=== PATIENT | male | born 1965 | race Caucasian/White ===

== ENCOUNTER 2019-06-24 14:35 | Inpatient (IN) | payer OTHER ==
[2019-06-24 15:09] LABS: ABS Basophils 0.2 10^3/ul (0-0.2); ABS Eosinophils 0.2 10^3/ul (0-0.6); ABS Lymphocytes 2.5 10^3/ul (1.0-4.8); ABS Monocytes 1.5 10^3/ul (0-0.8); ABS Neutrophils 12.9 10^3/ul (1.5-7.7); Eosinophil % 1.2 %; Hematocrit 45 % (42-52); Hemoglobin 15.6 g/dL (14.0-18.0); Lymphocyte % 14.6 %; Mean Corpuscular HGB Conc 35 g/dL (31-36); Mean Corpuscular Hemoglobin 31 pg (27-31); Mean Corpuscular Volume 90 fL (80-94); Mean Platelet Volume 6.7 fL (7.4-10.4); Platelet Count 318 10^3/uL (150-450); Red Blood Count 5.01 10^6 /uL (4.18-5.48); Red Cell Distribution Width 14 % (10-15); White Blood Count 17.2 10^3/uL (3.5-10.8)
[2019-06-24 15:15] LABS: INR 1.05 (0.82-1.09)
[2019-06-24 15:32] LABS: Troponin I 0.01 ng/mL (<0.03)
[2019-06-24 16:13] LABS: Albumin 3.9 g/dL (3.2-5.2); Calcium 9.3 mg/dL (8.6-10.3); Potassium 3.7 mmol/L (3.5-5.0); Total Bilirubin 0.5 mg/dL (0.2-1.0)
[2019-06-24 16:19] LABS: Albumin/Globulin Ratio 1.2 (1-3); BUN/Creatinine Ratio 14.2 (8-20); EGFR African American 66.7 (>60); EGFR Non-African American 55.1 (>60); Globulin 3.3 g/dL (2-4); Total Protein 7.2 g/dL (6.4-8.9)
[2019-06-24] MEDS ORDERED: NS 0.9% 1000 ML** 1,000 ML IV ONE (16:48)
[2019-06-24] MEDS ORDERED: Al Hydrox/Mg Hydrox/Simet LIQ* 30 ML UDC PO ONE (16:51)
[2019-06-24] MEDS ORDERED: Lidocaine 2% VISCOUS* 15 ML UDC PO ONE (16:51)
--- NOTE | 2019-06-24 16:52 | ED ---
HPI Chest Pain - HPI Summary HPI Summary: 54 year old M presenting to [facility] with a chief complaint of left sided chest pain that radiates to his navel and groin starting yesterday 06/24/2019 PM. The patient also reports bilateral arm weakness, nausea, lightheadedness, decreased appetite. He denies his pain radiating to his back. He reports that his symptoms have improved since initial onset. He states he took some aspirin today and took a nap after which his symptoms improved. The patient rates the pain 9/10 in severity. Symptoms aggravated by nothing. Symptoms alleviated by aspirin and rest. Patient denies any diaphoresis, abdominal pain, bloody stools , dysuria, hematuria, lower back pain, cough, bilateral calf pain, pain or numbness in bilateral arms, or shortness of breath. Patient denies any cardiac history. No hx [place], cardiac stents placed, or diabetes. The patient reports a history of hypertension. Current smoker. He states he has been smoking for 35 years. He denies eating today or having a bowel movement today. - History of Current Complaint Chief Complaint: EDChestPainROMI Time Seen by Provider: 06/24/19 16:38 Hx Obtained From: Patient Onset/Duration: Started Hours Ago, Still Present Timing: Constant Current Severity: Severe Pain Intensity: 9 Pain Scale Used: 0-10 Numeric Chest Pain Location: Discrete at: - left sided Chest Pain Radiates: Yes Chest Pain Radiates To:: Other - Navel and groin Aggravating Factor(s): Nothing Alleviating Factor(s): Other: - aspirin and rest Associated Signs and Symptoms: Positive: Negative - diaphoresis, abdominal pain , bloody stools, dysuria, hematuria, lower back pain, cough, bilateral calf pain , pain or numbness in bilateral arms, or shortness of breath, Weakness - Bilateral arm weakness, Lightheadedness, Nausea, Other: - decreased appetite - Allergy/Home Medications Allergies/Adverse Reactions: Allergies Allergy/AdvReac Type Severity Reaction Status Date / Time No Known Allergies Allergy Verified 06/24/19 14:53 Home Medications: Home Medications Amlodipine Besylate/Benazepril [Lotrel 10-40 mg] 1 cap PO DAILY 06/24/19 [ History Confirmed 06/24/19] Bupropion XL* [Wellbutrin XL *] 300 mg PO DAILY 06/24/19 [History Confirmed ] Omeprazole (Nf) [Prilosec (NF)] 40 mg PO DAILY 06/24/19 [History Confirmed 06/24] tadalafiL [Tadalafil] 10 mg PO DAILY PRN 06/24/19 [History Confirmed 06/24/19] PMH/Surg Hx/FS Hx/Imm Hx Endocrine/Hematology History: Denies: Hx Diabetes Cardiovascular History: Reports: Hx Hypertension Denies: Hx Deep Vein Thrombosis, Hx Myocardial Infarction - Surgical History Surgery Procedure, Year, and Place: varicose veins surgery in [place] Infectious Disease History: No Infectious Disease History: Denies: Traveled Outside the [place] in Last 30 Days - Family History Known Family History: Positive: Hypertension - Social History Alcohol Use: None Substance Use Type: Reports: None Hx Tobacco Use: Yes Smoking Status (MU): Former Smoker Review of Systems Negative: Skin Diaphoresis Positive: Chest Pain Negative: Shortness Of Breath, Cough Gastrointestinal: Negative - bloody stools Positive: Nausea, Other - decreased appetite. Negative: Abdominal Pain Genitourinary: Other - Testicular pain Negative: dysuria, hematuria Musculoskeletal: Negative - Lower back pain; bilateral calf pain; pain in bilateral arms Positive: Other - Diaphoresis Neurological/Mental Status: Other - light headedness Positive: Weakness - Bilateral arm. Negative: Numbness - bilateral arms All Other Systems Reviewed And Are Negative: Yes Physical Exam - Summary Physical Exam Summary: Constitutional: Well-developed, Well-nourished, Alert. (-) Distressed Skin: Warm, Dry HENT: Normocephalic; Atraumatic Eyes: Conjunctiva normal Neck: Musculoskeletal ROM normal neck. (-) JVD, (-) Stridor, (-) Tracheal deviation Cardio: Rhythm regular, rate normal, Heart sounds normal; Intact distal pulses; The pedal pulses are 2+ and symmetric. Radial pulses are 2+ and symmetric. (-) Murmur Pulmonary/Chest wall: Effort normal. (-) Respiratory distress, (-) Wheezes, (-) Rales Abd: Soft, mild mid-abdominal tenderness, (-) Distension, (-) Guarding, (-) Rebound Musculoskeletal: (-) Edema Lymph: (-) Cervical adenopathy Neuro: Alert, Oriented x3 Psych: Mood and affect Normal Triage Information Reviewed: Yes Vital Signs On Initial Exam: Initial Vitals Temp Pulse Resp BP Pulse Ox 98.2 F 70 18 159/95 98 06/24/19 14:44 06/24/19 14:44 06/24/19 14:44 06/24/19 14:44 06/24/19 14:44 Vital Signs Reviewed: Yes Procedures - Sedation Patient Received Moderate/Deep Sedation with Procedure: No Diagnostics - Vital Signs Vital Signs Temp Pulse Resp BP Pulse Ox 06/24/19 14:44 98.2 F 70 18 159/95 98 - Laboratory Lab Results: Lab Results 06/24/19 06/24/19 06/24/19 Range/Units 14:48 14:48 14:48 WBC 17.2 H (3.5-10.8) 10^3/uL RBC 5.01 (4.18-5.48) 10^6 /uL Hgb 15.6 (14.0-18.0) g/dL Hct 45 (42-52) % MCV 90 (80-94) fL MCH 31 (27-31) pg MCHC 35 (31-36) g/dL RDW 14 (10-15) % Plt Count 318 (150-450) 10^3/uL MPV 6.7 L (7.4-10.4) fL Neut % (Auto) 74.8 % Lymph % (Auto) 14.6 % [place] % (Auto) 8.5 % Eos % (Auto) 1.2 % Baso % (Auto) 0.9 % Absolute Neuts (auto) 12.9 H (1.5-7.7) 10^3/ul Absolute Lymphs (auto) 2.5 (1.0-4.8) 10^3/ul Absolute Monos (auto) 1.5 H (0-0.8) 10^3/ul Absolute Eos (auto) 0.2 (0-0.6) 10^3/ul Absolute Basos (auto) 0.2 (0-0.2) 10^3/ul Absolute Nucleated RBC 0.0 10^3/ul Nucleated RBC % 0.0 INR (Anticoag Therapy) 1.05 (0.82-1.09) Sodium 139 (135-145) mmol/L Potassium 3.7 (3.5-5.0) mmol/L Chloride 106 (101-111) mmol/L Carbon Dioxide 25 (22-32) mmol/L Anion Gap 8 (2-11) mmol/L BUN 19 (6-24) mg/dL Creatinine 1.34 H (0.67-1.17) mg/dL Est GFR ( Amer) 66.7 (>60) Est GFR (Non-Af Amer) 55.1 (>60) BUN/Creatinine Ratio 14.2 (8-20) Glucose 119 H (70-100) mg/dL Calcium 9.3 (8.6-10.3) mg/dL Total Bilirubin 0.50 (0.2-1.0) mg/dL AST 20 (13-39) U/L ALT 38 (7-52) U/L Alkaline Phosphatase 89 (34-104) U/L Troponin I 0.01 (<0.03) ng/mL Total Protein 7.2 (6.4-8.9) g/dL Albumin 3.9 (3.2-5.2) g/dL Globulin 3.3 (2-4) g/dL Albumin/Globulin Ratio 1.2 (1-3) Result Diagrams: 06/24/19 14:48 06/24/19 14:48 Lab Statement: Any lab studies that have been ordered have been reviewed, and results considered in the medical decision making process. - CT CTA Chest/Abdomen/Pelvis CT Interpretation Completed By: Radiologist Summary of CT Findings: 1. 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 2. CORONARY ARTERY DISEASE. 3. EXTENDING FROM THE INFERIOR MARGIN OF THE THIRD DUODENAL SEGMENT, THERE IS NONSPECIFIC. STRANDING OF THE RETROPERITONEAL TISSUES (JUST ANTERIOR TO THE RIGHT PSOAS MUSCLE). CORRELATE FOR SIGNS OF PEPTIC ULCER DISEASE. FOLLOW-UP IMAGING IS RECOMMENDED TO DOCUMENT. RESOLUTION OF THIS FINDING. 4. INDETERMINATE ADRENAL NODULES (2 CM ON THE LEFT ANKLE ON 1.5 CM ON THE RIGHT). AT THE TIME OF FOLLOW-UP IMAGING RECOMMENDED ABOVE, AND ADRENAL MASS PROTOCOL SHOULD BE PERFORMED FOR FURTHER CHARACTERIZATION. ED physician has reviewed this report. - EKG 14:39 Cardiac Rate: NL - 70 BPM EKG Rhythm: Sinus Rhythm Summary of EKG Findings: T-Wave inversion in leads V4-V6 and aVL. ED physician has reviewed and interpreted this EKG. Chest Pain Course/Dx - Course Course Of Treatment: 54 y/o M c/o left sided chest pain that radiates to his navel and groin, bilateral arm weakness, nausea, lightheadedness, decreased appetite starting yesterday 06/24/2019 PM. He reports that his symptoms have improved since initial onset. Hx hypertension. Current smoker. Physical exam findings: mild mid-abdominal tenderness, no distension. An EKG reveals sinus rhythm with rate of 70 BPM, T-Wave inversion in leads V4-V6 and aVL. CTA Chest/ Abdomen/Pelvis reveals, per radiologist, 1. 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 2. CORONARY ARTERY DISEASE. 3. EXTENDING FROM THE INFERIOR MARGIN OF THE THIRD DUODENAL SEGMENT, THERE IS NONSPECIFIC. STRANDING OF THE RETROPERITONEAL TISSUES (JUST ANTERIOR TO THE RIGHT PSOAS MUSCLE). CORRELATE FOR SIGNS OF PEPTIC ULCER DISEASE. FOLLOW-UP IMAGING IS RECOMMENDED TO DOCUMENT. RESOLUTION OF THIS FINDING. 4. INDETERMINATE ADRENAL NODULES (2 CM ON THE LEFT ANKLE ON 1.5 CM ON THE RIGHT). AT THE. TIME OF FOLLOW-UP IMAGING RECOMMENDED ABOVE, AND ADRENAL MASS PROTOCOL SHOULD BE PERFORMED. FOR FURTHER CHARACTERIZATION. Bloodwork revealed no significant abnormalities except for a WBC of 17.2, MPV of 6.7, Absolute Neuts of 12.9, Absolute Monos of 1.5, creatinine of 1.34, glucose of 119, and lipase of 417. In the ED course, the patient was given Maalox Plus, Xylocaine 2% viscous, and normal saline fluids. EDITA Brandon, agrees with admission for upper endoscopy. Dr. Draper, hospitalist, agrees to admit patient. - Diagnoses Provider Diagnoses: Gastritis - Provider Notifications Discussed Care Of Patient With: Federico Gibson Time Discussed With Above Provider: 18:02 Instructed by Provider To: Other - EDITA Brandon, agrees with admission for upper endoscopy. At 18:14, spoke with Dr. Draper, hospitalist, agrees to admit patient. Discharge ED - Sign-Out/Discharge Documenting (check all that apply): Patient Departure - Discharge Plan Condition: Stable Disposition: ADMITTED TO [facility] Referrals: Crow Muniz MD [Primary Care Provider] - - Billing Disposition and Condition Condition: STABLE Disposition: Admitted to [facility] - Attestation Statements Document Initiated by Scribe: Yes Documenting Scribe: Sandi Gray Provider For Whom Scribe is Documenting (Include Credential): Dylan Quiroz, DO Scribe Attestation: I, Sandi Gray, scribed for Dylan Quiroz DO on 06/24 at 1955. Scribe Documentation Reviewed: Yes Provider Attestation: The documentation as recorded by the scribe, Sandi Gray accurately reflects the service I personally performed and the decisions made by , Dylan Quiroz DO Status of Scribe Document: Viewed
[2019-06-24] MEDS ORDERED: Iodixanol* (CONTRAST) 320 MG/ML 100 ML SDV IV ONE (16:56)
[2019-06-24] MEDS ORDERED: Ondansetron INJ* 2 MG/ML VIAL IV PRN (18:22)
[2019-06-24] MEDS ORDERED: Acetaminophen TAB* 325 MG PO PRN (18:22)
[2019-06-24] MEDS ORDERED: Morphine INJ* 4 MG/ML 1 ML SYRINGE (NEW SYRINGE VERSION) IV PRN (18:23)
[2019-06-24] MEDS: Enoxaparin(*) 40 MG/0.4 ML SYR SUBCUT SCH (19:36)
[2019-06-24] MEDS: Pantoprazole IV* 40 MG IV SCH (19:36)
[2019-06-24] MEDS: Morphine INJ* 2 MG/ML 1 ML SYRINGE (TWO MG - NEW SYRINGE VERSION) IV PRN ×2 (19:37→22:06)
[2019-06-24] MEDS: NS 0.9% 1000 ML** 1,000 ML IV SCH (20:20)
--- NOTE | 2019-06-24 22:15 | HP ---
CC: Dr. Muniz; Dr. Saira Mueller * ADMISSION HISTORY AND PHYSICAL: DATE OF ADMISSION: 06/24/19 PRIMARY CARE PROVIDER: Dr. Muniz. MY ATTENDING WHILE IN THE HOSPITAL: Dr. Vanessa Draper.* (DICTATED BY EDWIN FORD) CONSULTING KNITTED GARMENT FINISHER: Dr. Saira Mueller. CHIEF COMPLAINT: Abdominal pain x1 day. HISTORY OF PRESENT ILLNESS: Mr. Villanueva is a 54-year-old male with past medical history significant for GERD, esophageal web discovered on EGD in 2011, and hypertension who presents to the emergency department after feeling in his normal state of health today except for approximately 3 days of mild postprandial discomfort, which started on 06/21/19, when he began a new diet, but no excruciating pain after eating; however, this morning without eating, he developed sudden onset of abdominal pain from his epigastrium down to his testicles with nausea initially, which then subsided. The pain also decreased by itself; however, the patient was encouraged to come to the hospital by his children. The patient denied any shortness of breath, overt chest pain. The patient did feel with this episode very weak and had chills. The patient denies any recent changes to his medications, any recent sick contacts. The patient does not go to his doctor frequently, but has never had anything like this before. The patient denies any recent weight loss or weight gain. No swelling in his legs. No difficulty breathing, lying flat in the emergency department. The patient had an EKG, which was unremarkable and troponin, which was negative, but was found to have an elevated lipase and a CT of the abdomen and pelvis showed a nonspecific inflammation of the retroperitoneum around the 3rd segment of the duodenum with no gallbladder pathology. The patient continued to have low level of abdominal pain and due to concern for pancreatitis versus duodenal disease, we were asked to evaluate the patient for admission to the hospital. PAST MEDICAL HISTORY: 1. Hypertension. 2. GERD. 3. Esophageal stricture. 4. BPH. PAST SURGICAL HISTORY: 1. Endoscopy. 2. Varicose vein surgery. MEDICATIONS: The patient states he takes: 1. Omeprazole 40 mg p.o. daily. 2. Amlodipine/benazepril 10/40 one tab p.o. daily. ALLERGIES: No known drug allergies. FAMILY HISTORY: The patient's father is alive, has only high blood pressure. The patient's mother is also alive and has only high blood pressure. The only grandparent the patient knows and knows what they of, of emphysema. The patient has several siblings also who are healthy except for one brother who has high blood pressure. SOCIAL HISTORY: The patient smoked tobacco for approximately 30 years, quit 6 months ago. The patient denies alcohol use or ever abuse. The patient denies illicit abuse. The patient works as a andrade. The patient is and has 2 adopted children. The patient's surrogate decision maker is ex-, Brittany Villanueva. REVIEW OF SYSTEMS: A 10-point review of systems reviewed and is negative except as above in the HPI. PHYSICAL EXAMINATION GENERAL: The patient is a 54-year-old male who appears stated age, sitting in the bed, in no acute distress. VITAL SIGNS: Temperature 98.2, pulse rate 70, respiratory rate 18, oxygen saturation 98% on room air, blood pressure 159/95. HEENT: Head: Normocephalic, atraumatic. Sclerae anicteric. No conjunctival injection. Nasal mucosa is moist. Oral mucosa moist. No pharyngeal erythema, discharge, postnasal drainage, or exudate. NECK: Supple, nontender. No lymphadenopathy. No carotid bruits auscultated. RESPIRATORY: Clear to auscultation bilaterally. No wheezes, rales, or rhonchi. Good air exchange bilaterally. CARDIAC: Regular rate and rhythm. No clicks, murmurs, gallops, or rubs. Pulses 2+ in the bilateral dorsalis pedis, posterior tibial, and radial areas. ABDOMEN: Soft. Tender to palpation in the epigastric area. No rebound or guarding. No hepatosplenomegaly. No abdominal bruits auscultated. No hepatojugular reflux. GENITOURINARY: No suprapubic or CVA tenderness. NEURO: Cranial nerves II through XII intact. No focal deficits. Alert and oriented x3. PSYCHIATRIC: Pleasant and cooperative. SKIN: Clean, dry, intact. No rashes. LABORATORY DATA: White blood cell count 17.2, hemoglobin 15.6, platelet count 318. INR 1.05. Sodium 139, potassium 3.7, glucose 106, carbon dioxide 25, anion gap 8, BUN 19, creatinine 1.34, glucose 119. Calcium 9.2. Bilirubin 0.5 , AST 20, ALT 38, alkaline phosphatase 89. Troponin 0.01. Protein 7.2, albumin 3.9, globulin 2.3. Lipase 417. DIAGNOSTIC STUDIES: EKG shows normal sinus rhythm, no ST segment elevation or depression, no hypertrophy or enlargement, normal R wave progression, T wave inversions in the lateral leads consistent with left ventricular hypertrophy. Chest, abdomen and pelvis CTA read as atherosclerotic disease with no aortic dissection, coronary artery disease, extending from the inferior margin of the third duodenal segment, there is nonspecific inflammation in the retroperitoneal tissues just anterior to the right psoas muscle correlate for signs of peptic ulcer disease, follow up imaging is recommended to document resolution of this finding and to address adrenal nodules at the time of the followup characterization. ASSESSMENT AND PLAN: Impression: Mr. Villanueva is a 54-year-old male with past medical history significant for hypertension, GERD, and esophageal stricture who presented to the emergency department with 1 day of sudden onset of severe abdominal pain, found to have findings concerning for duodenal disease, pancreatitis, admitted to the hospital for further diagnostic studies including EGD and supportive care. 1. Abdominal pain. The patient's abdominal pain started in his epigastrium and radiating to his groin is concerning for pancreatitis or possible peptic ulcer disease with CT findings localizing to the third segment of the duodenum. The patient's case has been discussed with Dr. Federico Gibson of Gastroenterology and it will be planned for the patient have an endoscopy in the morning. The patient will be continued on his omeprazole at this point. The patient will be continued on IV pantoprazole daily while he is n.p.o. The patient will be fluid expanded with normal saline and the patient will have IV pain control with morphine. The patient has no current signs of GI bleeding and his hemoglobin is 15.6. The patient's troponin is negative, I have low concerns for presenting acute coronary syndrome. 2. Elevated lipase. This is either related to pancreatitis causing inflammation in the duodenum or duodenal pathology causing inflammation of the pancreas. This will be repeated in the morning. 3. Hypertension. The patient is currently normotensive. The patient will be given fluids. The patient's blood pressure will be monitor closely and his antihypertensives will be held at this time, while he is n.p.o. 4. History of esophageal stricture. Biopsies from this were normal except for signs of esophagitis. 5. Gastroesophageal reflux disease. Continue the patient's PPI as above. 6. DVT prophylaxis: Lovenox subcu. 7. FEN: The patient will be n.p.o. at this time with fluids 150 mL an hour. 8. Disposition: The patient will be admitted for observation to the hospital. TIME SPENT: Approximately 60 minutes were spent on this admission, 30 of which was spent [id number] with the patient obtaining history and physical and discussing treatment plan. The plan has been discussed with my attending, Dr. Vanessa Draper, she is in agreement. EDWIN FORD [id number]/[facility] #: [id number] MTDD
[2019-06-25] MEDS: NS 0.9% 1000 ML** 1,000 ML IV SCH ×2 (04:56→14:35)
[2019-06-25] MEDS: Morphine INJ* 2 MG/ML 1 ML SYRINGE (TWO MG - NEW SYRINGE VERSION) IV PRN ×2 (04:59→10:28)
[2019-06-25 05:22] LABS: Urine Appearance Clear; Urine Bilirubin Negative (Negative); Urine Blood 1+ (Negative); Urine Color Yellow; Urine Glucose Negative (Negative); Urine Ketones Negative (Negative); Urine Nitrite Negative (Negative); Urine Protein Negative (Negative); Urine Specific Gravity 1.017 (1.010-1.030); Urine Urobilinogen Negative (Negative)
[2019-06-25 05:41] LABS: Urine Bacteria Absent (Absent); Urine Red Blood Cell Trace(0-2/hpf) (Absent); Urine Squamous Epithelial Cell Present (Absent); Urine White Blood Cell Absent (Absent)
[2019-06-25 07:09] LABS: ABS Basophils 0.1 10^3/ul (0-0.2); ABS Eosinophils 0.1 10^3/ul (0-0.6); ABS Lymphocytes 1.9 10^3/ul (1.0-4.8); ABS Monocytes 1.4 10^3/ul (0-0.8); ABS Neutrophils 13.7 10^3/ul (1.5-7.7); Eosinophil % 0.7 %; Hematocrit 45 % (42-52); Hemoglobin 15.3 g/dL (14.0-18.0); Mean Corpuscular HGB Conc 34 g/dL (31-36); Mean Corpuscular Hemoglobin 31 pg (27-31); Mean Corpuscular Volume 90 fL (80-94); Mean Platelet Volume 6.5 fL (7.4-10.4); Nucleated Red Blood Cells % 0.1; Platelet Count 313 10^3/uL (150-450); Red Blood Count 4.98 10^6 /uL (4.18-5.48); Red Cell Distribution Width 14 % (10-15); White Blood Count 17.2 10^3/uL (3.5-10.8)
[2019-06-25 07:30] LABS: Albumin 3.7 g/dL (3.2-5.2); Albumin/Globulin Ratio 1.1 (1-3); BUN/Creatinine Ratio 9.2 (8-20); Calcium 8.6 mg/dL (8.6-10.3); EGFR African American 75.8 (>60); EGFR Non-African American 62.6 (>60); Globulin 3.4 g/dL (2-4); HDL Cholesterol 32.5 mg/dL; Magnesium 2.1 mg/dL (1.9-2.7); Potassium 4.3 mmol/L (3.5-5.0); Total Bilirubin 0.7 mg/dL (0.2-1.0); Total Protein 7.1 g/dL (6.4-8.9)
--- NOTE | 2019-06-25 09:15 | PN ---
Subjective Date of Service: 06/25/19 Interval History: Continues to have sharp cramping pain to lower midline abdomen. Denies nausea. He felt bloated/distended, positive for flatus. Denies chest pain, palpitations , lightheadedness, dizziness, issues moving bowel or bladder. Family History: Unchanged from Admission Social History: Unchanged from Admission Past Medical History: Unchanged from Admission Objective Active Medications: Acetaminophen (Tylenol Tab*) 650 mg PO Q6H PRN PRN Reason: MILD PAIN or TEMP > 100.4 Enoxaparin Sodium (Lovenox(*)) 40 mg SUBCUT Q24H [facility] Last Admin: 06/24/19 19:36 Dose: 40 mg Sodium Chloride (Ns 0.9% 1000 Ml) 1,000 mls @ 125 mls/hr IV PER RATE [facility] Last Admin: 06/25/19 04:56 Dose: 125 mls/hr Morphine Sulfate (Morphine Inj (Syringe))*) 2 mg IV Q2H PRN PRN Reason: PAIN - MODERATE Last Admin: 06/25/19 04:59 Dose: 2 mg Ondansetron HCl (Zofran Inj*) 4 mg IV Q6H PRN PRN Reason: NAUSEA Last Admin: 06/24/19 19:36 Dose: 4 mg Pantoprazole Sodium (Protonix Iv*) 40 mg IV DAILY [facility] Last Admin: 06/24/19 19:36 Dose: 40 mg Vital Signs - 8 hr 06/25/19 06/25/19 06/25/19 03:51 04:59 05:59 Temperature 99.3 F Pulse Rate 90 Respiratory 16 17 16 Rate Blood Pressure 148/71 (mmHg) O2 Sat by Pulse 91 Oximetry Oxygen Devices in Use Now: None Appearance: This is a well developed gentleman seen sitting up in bed, mild distressed due to abdominal pain. Eyes: No Scleral Icterus, PERRLA Ears/Nose/Mouth/Throat: NL Teeth, Lips, Gums, Clear Oropharnyx, Mucous Membranes Moist Neck: NL Appearance and Movements; NL JVP, Trachea Midline Respiratory: Symmetrical Chest Expansion and Respiratory Effort, Clear to Auscultation Cardiovascular: NL Sounds; No Murmurs; No JVD, RRR, No Edema Abdominal: - - Abdomen hard, distended, tender to midline lower abdomen with normoactive +BSx4. Lymphatic: No Cervical Adenopathy Extremities: No Edema, No Clubbing, Cyanosis Skin: No Rash or Ulcers, No Nodules or Sclerosis Neurological: Alert and Oriented x 3 Lines/Tubes/Other Access: Clean, Dry and Intact Peripheral IV Result Diagrams: 06/25/19 07:03 06/25/19 07:03 Additional Lab and Data: Lab Results 06/24/19 06/24/19 06/24/19 Range/Units 14:48 14:48 14:48 WBC 17.2 H (3.5-10.8) 10^3/uL RBC 5.01 (4.18-5.48) 10^6 /uL Hgb 15.6 (14.0-18.0) g/dL Hct 45 (42-52) % MCV 90 (80-94) fL MCH 31 (27-31) pg MCHC 35 (31-36) g/dL RDW 14 (10-15) % Plt Count 318 (150-450) 10^3/uL MPV 6.7 L (7.4-10.4) fL Neut % (Auto) 74.8 % Lymph % (Auto) 14.6 % [place] % (Auto) 8.5 % Eos % (Auto) 1.2 % Baso % (Auto) 0.9 % Absolute Neuts (auto) 12.9 H (1.5-7.7) 10^3/ul Absolute Lymphs (auto) 2.5 (1.0-4.8) 10^3/ul Absolute Monos (auto) 1.5 H (0-0.8) 10^3/ul Absolute Eos (auto) 0.2 (0-0.6) 10^3/ul Absolute Basos (auto) 0.2 (0-0.2) 10^3/ul Absolute Nucleated RBC 0.0 10^3/ul Nucleated RBC % 0.0 INR (Anticoag Therapy) 1.05 (0.82-1.09) Sodium 139 (135-145) mmol/L Potassium 3.7 (3.5-5.0) mmol/L Chloride 106 (101-111) mmol/L Carbon Dioxide 25 (22-32) mmol/L Anion Gap 8 (2-11) mmol/L BUN 19 (6-24) mg/dL Creatinine 1.34 H (0.67-1.17) mg/dL Est GFR ( Amer) 66.7 (>60) Est GFR (Non-Af Amer) 55.1 (>60) BUN/Creatinine Ratio 14.2 (8-20) Glucose 119 H (70-100) mg/dL Calcium 9.3 (8.6-10.3) mg/dL Total Bilirubin 0.50 (0.2-1.0) mg/dL AST 20 (13-39) U/L ALT 38 (7-52) U/L Alkaline Phosphatase 89 (34-104) U/L Troponin I 0.01 (<0.03) ng/mL Total Protein 7.2 (6.4-8.9) g/dL Albumin 3.9 (3.2-5.2) g/dL Globulin 3.3 (2-4) g/dL Albumin/Globulin Ratio 1.2 (1-3) Assess/Plan/Problems-Billing Assessment: This is a 54 year old male with a PMH of GERD and HTN who was admitted on for abdominal pain. - Patient Problems (1) Abdominal pain Current Visit: Yes Status: Acute Code(s): R10.9 - UNSPECIFIED ABDOMINAL PAIN SNOMED Code(s): 39410977 Comment: - Abdomen hard, tender to touch throughout with pain localizing in the midline lower abdomen. No nausea since yesterday. CT scan obtained due to concern for possible perforation. Showed free fluid in retroperitonium though there did not appear to be definitive pancreatitis or colon involvement. Duodenum clear. -EGD performed today which showed no abnormalities and an intact duodenum. During procedure, he developed fever of 100.7 with chills. -Started on empiric zosyn, blood cultures drawn. (2) GERD (gastroesophageal reflux disease) Current Visit: Yes Status: Acute Code(s): K21.9 - GASTRO-ESOPHAGEAL REFLUX DISEASE WITHOUT ESOPHAGITIS SNOMED Code(s): 877361456 Comment: -Ordered pantoprazole IV daily. No current symptoms. (3) HTN (hypertension) Current Visit: Yes Status: Acute Code(s): I10 - ESSENTIAL (PRIMARY) HYPERTENSION SNOMED Code(s): 93619463 Comment: - Continue amlodipine. Hold benazepril due to elevated creatinine. (4) BPH (benign prostatic hyperplasia) Current Visit: Yes Status: Acute Code(s): N40.0 - BENIGN PROSTATIC HYPERPLASIA WITHOUT LOWER URINRY TRACT SYMP SNOMED Code(s): 180844563 Comment: - Not currently on any medication. (5) DVT prophylaxis Current Visit: Yes Status: Acute Code(s): Z29.9 - ENCOUNTER FOR PROPHYLACTIC MEASURES, UNSPECIFIED SNOMED Code(s): 103304444 Comment: Is low risk, does not require AC (6) Full code status Current Visit: Yes Status: Acute Code(s): Z78.9 - OTHER SPECIFIED HEALTH STATUS SNOMED Code(s): 369638538 Status and Disposition: Condition: fair Disp: Admit obv to 4N Attending: Abby Paulino
[2019-06-25] MEDS: Pantoprazole IV* 40 MG IV SCH (10:28)
[2019-06-25] MEDS ORDERED: Iohexol 300* (CONTRAST) 10 ML SDV IV ONE (11:37)
[2019-06-25] MEDS ORDERED: fentaNYL* 50 MCG/ML 2 ML VIAL (100 MCG VIAL) ONE (15:44)
[2019-06-25] MEDS ORDERED: Midazolam* 1 MG/ML 10 ML VIAL (10 MG) ONE (15:44)
[2019-06-25] MEDS ORDERED: Piperacillin/Tazobac ADVAN(*) 3.375 GM in NS 0.9% 100 ML* 100 ML IVPB ONE (17:30)
[2019-06-25] MEDS ORDERED: Zosyn per Pharmacy* NOTE FOLLOW UP SCH (18:00)
--- NOTE | 2019-06-25 18:59 | PRO ---
CC: Winsome Matthews NP * DATE OF PROCEDURE: 06/25/19 - ROOM #415 PROCEDURE: EGD with biopsy. REFERRING PROVIDER: Winsome Matthews NP. INDICATION: Abdominal pain and abnormal CT scan. MEDICATIONS GIVEN: Midazolam 9 mg IV, fentanyl 75 mcg IV. DESCRIPTION OF PROCEDURE: Full disclosure of risks were reviewed with the patient as detailed on the consent form. The patient was placed in the left lateral decubitus position and monitored with continuous pulse oximetry, capnography, interval blood pressure monitoring, and direct observation. A bite -block was placed between the patient's teeth. An adult gastroscope was then inserted into the patient's mouth and advanced down the esophagus into the stomach and into the distal duodenum. Findings and interventions are described below. FINDINGS: Esophagus was a normal tubular structure without rings or strictures. GE junction was irregular with several tongues of salmon colored mucosa extending 2 cm above the GE junction. Proximal most reach of the squamocolumnar junction was a 36 cm. GE junction occurred at 38 cm. Scope was advanced into the stomach. Stomach was examined in the forward and retroflexed views. Gastric mucosa was normal in appearance. No erosions or ulcers. No mass. Scope was then advanced into the duodenum to at least the third portion if not distal duodenum/proximal jejunum. A close inspection was made of this area. No erosions or ulcers noted. No erythema. Scope was then slowly withdrawn back into the esophagus. Biopsies were obtained from the irregular GE junction to evaluate for Souza's esophagus. Scope was then withdrawn from the patient. The patient tolerated the procedure well and was recovered in the GI recovery area. IMPRESSION: 1. Complete upper endoscopy to the distal duodenum. 2. Mildly irregular GE junction with some suspicion for Souza's esophagus. 3. Otherwise unremarkable exam. No explanation for patient's pain or abnormal CT findings. FOLLOWUP: 1. Await pathology. 2. I reviewed the CT scan from 06/24/19 and 06/25/[address] Matthews from Radiology. It does appear that there is an area of inflammation in the retroperitoneum. This is a nonspecific finding. On the CT from 06/25/19, there is noted to be an increasing amount of fluid in the right pericolic gutter. This does not appear to be organizing or concerning for abscess. Pancreas appears normal. Colon appears unremarkable. Inflammatory area in the retroperitoneum did not appear to be centered on any particular retroperitoneal organ. 3. The patient was febrile to 100.7 while down for endoscopy. His white count is up to 17. Given the concern for possible inflammation or infection in the retroperitoneum with leukocytosis and fever, I think it is reasonable to empirically start antibiotics. We would also recommend checking a blood culture. 4. We would keep the patient n.p.o. for now with IV fluids. Low suspicion for pancreatitis given the prompt improvement in the pancreatic lipase and normal- appearing pancreas on CT. If the patient's abdominal pain begins to improve, then I would advance to clears and then slowly forward depending on symptoms. 5. Can continue PPI once daily given the chronic reflux symptoms. Thank you very much for this consult. GI will continue to follow along. Please contact GI if any acute clinical change. [id number]/[facility] #: [id number] MTDD
--- NOTE | 2019-06-25 19:16 | CONS ---
CC: Winsome Matthews NP; Dr. Muniz * GASTROENTEROLOGY CONSULT REPORT: DATE OF CONSULT: 06/25/19 REASON FOR CONSULT: Abdominal pain, abnormal CT. REFERRING PROVIDER: Winsome Matthews NP PRIMARY CARE PHYSICIAN: Dr. Muniz. HISTORY OF PRESENT ILLNESS: Mr. Villanueva is a 54-year-old gentleman with a history of hypertension, GERD, and BPH, who is admitted with acute onset abdominal pain. Mr. Villanueva reports that he was in his usual state of health until Sunday evening. At that time, he developed severe abdominal cramping and discomfort. Pain seemed to radiate from the epigastrium down into the lower abdomen, not associated with any significant nausea. No vomiting. He describes feeling weakness in his hands. Also described sweating and chills, concerning for fever , although he did not take his temperature. Reported feeling dizzy. Symptoms continued into Sunday. He used ibuprofen on Sunday and again on Sunday, but otherwise he denies any NSAID use. Brought to the ED for evaluation. On arrival to the ED, Mr. Villanueva was noted to be afebrile with stable vital signs, although his blood pressure has been high. Labs notable for white count of 17.2. Creatinine 1.34. Lipase 417. Initially, a CTA chest, abdomen, and pelvis was performed. This study commented on coronary artery disease and atherosclerotic disease. There was a note made of nonspecific stranding of the retroperitoneal tissue extending from the anterior margin of the third duodenal segments just anterior to the right psoas muscle. There were also some indeterminant adrenal nodules noted. The patient was admitted. This morning, he noted increasing abdominal pain. Primary team noted the abdomen was quite hard. Repeat CT abdomen and pelvis with oral contrast performed to ensure no acute change. This study was read as demonstrating small amount of simple fluid within the pelvis with inflammatory change in the retroperitoneum of unclear etiology. Cholelithiasis was noted. Pancrease was described as normal in appearance. Colon was descried as normal in appearance. GI consulted. On interview, Mr. Villanueva reports ongoing discomfort. He has a history of chronic reflux for which he is on omeprazole 40 mg daily. He had an episode of food impaction in 2011. A week later, an EGD was performed, which demonstrated a Schatzki ring. This ring was dilated to 20 mm. Of note, there was a small antral ulcer at that time. CLOtest was negative. Has not had any GI symptoms since this time. Denies any alcohol use. Uses vitamin D supplementation, but no other supplements or arys-isx-iwyyzss medicines. Rare NSAID use. PAST MEDICAL HISTORY: 1. Hypertension. 2. GERD. 3. BPH. 4. CAD and atherosclerosis as per CT findings. PAST SURGICAL HISTORY: Varicose vein surgery. MEDICATIONS: 1. Omeprazole 40 mg daily. 2. Amlodipine/benazepril 10/40 one tab daily. ALLERGIES: No drug allergies. FAMILY HISTORY: Mother and father with high blood pressure. No known GI or liver disease. SOCIAL HISTORY: Long-term smoker of cigarettes for 30 years, ge quit 6 months ago. No significant alcohol use. No drug use. The patient works as a crop andrade. He is . REVIEW OF SYSTEMS: A complete 12-point review of systems is negative except as mentioned above. PHYSICAL EXAM: Vital Signs: 98.3, heart rate 70s, blood pressure 160s/90s, 96 % on room air. General: A pleasant gentleman. No significant discomfort appearance on exam. HEENT: Mucous membranes moist. Cardiovascular: Regular rate and rhythm. Pulmonary: Breathing comfortably. Occasional mildly productive sounding cough. Abdomen: Soft, tender particularly in the upper abdomen. No rebound or guarding. Mildly firm feeling abdomen in general, although not tense. Extremities: No significant edema. Skin: No jaundice. Neuro: A and O x3. No gross neuro deficits. DIAGNOSTIC STUDIES/LAB DATA: Labs reviewed. White count 17.2 yesterday and on repeat today. Hemoglobin normal. Platelet count normal. Absolute neutrophil count elevated. Creatinine from 1.34 to 1.2, glucose 120, liver enzymes are normal. Lipase 417 on admission and now 99. Imaging: Imaging extensively reviewed in the HPI. There is concern for retroperitoneal inflammation, although the finding is nonspecific. IMPRESSION AND RECOMMENDATION: Mr. Villanueva is a 54-year-old gentleman with a history of hypertension and chronic gastroesophageal reflux disease, who is admitted with acute onset abdominal pain and subjective fevers and chills. The patient has ongoing significant abdominal pain with some tenderness in the upper abdomen in particular. His labs are notable for leukocytosis to 17 and mildly elevated lipase, which has improved on recheck. Imaging is demonstrating nonspecific retroperitoneal inflammation. There is some concern that perhaps this is coming from a duodenal source such as an ulcer. No clear risk factors for ulcers although the patient did have a gastric ulcer in 2011. The lipase was elevated to more than 3 times the upper limit of normal on admission, although the pancreas appears normal on imaging arguing against pancreatitis. Additionally, the retroperitoneal inflammation does not appear to be centered on the pancreas. At this point, I think it is prudent to proceed with an upper endoscopy to evaluate for peptic ulcer disease as a possible explanation. Please keep the patient n.p.o. Continue with IV fluids. We will plan for EGD this afternoon. Thank you very much for this consult. [id number]/[facility] #: [id number] TIMOTEO
[2019-06-25] MEDS: Enoxaparin(*) 40 MG/0.4 ML SYR SUBCUT SCH (19:35)
[2019-06-26] MEDS: ZOSYN 3.375 GM Q8H per EXTENDED INFUSION IVPB SCH ×8 (00:39→23:03)
[2019-06-26] MEDS: NS 0.9% 1000 ML** 1,000 ML IV SCH ×3 (02:27→19:51)
[2019-06-26 05:56] LABS: Hematocrit 45 % (42-52); Hemoglobin 15.1 g/dL (14.0-18.0); Mean Corpuscular HGB Conc 34 g/dL (31-36); Mean Corpuscular Hemoglobin 31 pg (27-31); Mean Corpuscular Volume 91 fL (80-94); Mean Platelet Volume 6.6 fL (7.4-10.4); Platelet Count 304 10^3/uL (150-450); Red Blood Count 4.94 10^6 /uL (4.18-5.48); Red Cell Distribution Width 14 % (10-15); White Blood Count 17.8 10^3/uL (3.5-10.8)
[2019-06-26 06:02] LABS: ABS Basophils 0.2 10^3/ul (0-0.2); ABS Eosinophils 0.2 10^3/ul (0-0.6); ABS Lymphocytes 2.1 10^3/ul (1.0-4.8); ABS Monocytes 1.7 10^3/ul (0-0.8); ABS Neutrophils 13.7 10^3/ul (1.5-7.7); Eosinophil % 1.3 %; Lymphocyte % 11.5 %
[2019-06-26 06:13] LABS: BUN/Creatinine Ratio 10.8 (8-20); Calcium 8.7 mg/dL (8.6-10.3); EGFR African American 82.9 (>60); EGFR Non-African American 68.5 (>60); Potassium 3.7 mmol/L (3.5-5.0)
[2019-06-26] MEDS: amLODIPine TAB* 5 MG PO SCH (08:05)
[2019-06-26] MEDS: Pantoprazole IV* 40 MG IV SCH (08:06)
[2019-06-26] MEDS ORDERED: Polyethylene Glycol 3350* 17 GM PACKET PO PRN (15:30)
--- NOTE | 2019-06-26 16:40 | PN ---
Progress Note - Progress Note Date of Service: 06/26/19
--- NOTE | 2019-06-26 16:42 | PN ---
Subjective Date of Service: 06/26/19 Interval History: Reports improving pain.3/5 in intensity. Advanced to clears this am.Tolerated well Family History: Unchanged from Admission Social History: Unchanged from Admission Past Medical History: Unchanged from Admission Objective Active Medications: Acetaminophen (Tylenol Tab*) 650 mg PO Q6H PRN PRN Reason: MILD PAIN or TEMP > 100.4 Amlodipine Besylate (Norvasc Tab*) 10 mg PO DAILY [facility] Last Admin: 06/26/19 08:05 Dose: 10 mg Docusate Sodium (Colace Cap*) 100 mg PO BID [facility] Enoxaparin Sodium (Lovenox(*)) 40 mg SUBCUT Q24H [facility] Last Admin: 06/25/19 19:35 Dose: 40 mg Sodium Chloride (Ns 0.9% 1000 Ml) 1,000 mls @ 125 mls/hr IV PER RATE [facility] Last Admin: 06/26/19 11:01 Dose: 125 mls/hr Piperacillin Sod/Tazobactam (Sod 3.375 gm/ Sodium Chloride) 100 mls @ 25 mls/ hr IVPB Q8H [facility] Last Admin: 06/26/19 15:49 Dose: 25 mls/hr Morphine Sulfate (Morphine Inj (Syringe))*) 2 mg IV Q2H PRN PRN Reason: PAIN - MODERATE Last Admin: 06/25/19 10:28 Dose: 2 mg Ondansetron HCl (Zofran Inj*) 4 mg IV Q6H PRN PRN Reason: NAUSEA Last Admin: 06/24/19 19:36 Dose: 4 mg Pantoprazole Sodium (Protonix Iv*) 40 mg IV DAILY [facility] Last Admin: 06/26/19 08:06 Dose: 40 mg Pharmacy Consult (Zosyn Per Pharmacy*) 1 note FOLLOW UP .ZOSYN PER PHARMACY [facility] Polyethylene Glycol/Electrolytes (Miralax (17 Gm Dose Moreno)) 17 gm PO DAILY PRN PRN Reason: CONSTIPATION Last Admin: 06/26/19 15:49 Dose: 17 gm Vital Signs - 8 hr 06/26/19 06/26/19 11:15 15:15 Temperature 99.3 F 97.7 F Pulse Rate 80 80 Respiratory 18 18 Rate Blood Pressure 138/87 147/88 (mmHg) O2 Sat by Pulse 97 97 Oximetry Oxygen Devices in Use Now: None Eyes: No Scleral Icterus Ears/Nose/Mouth/Throat: NL Teeth, Lips, Gums Neck: NL Appearance and Movements; NL JVP Cardiovascular: NL Sounds; No Murmurs; No JVD Abdominal: NL Sounds; No Tenderness; No Distention Extremities: No Edema Neurological: Alert and Oriented x 3 Result Diagrams: 06/26/19 05:35 06/26/19 05:35 Additional Lab and Data: Lab Results 06/24/19 06/24/19 06/24/19 Range/Units 14:48 14:48 14:48 WBC 17.2 H (3.5-10.8) 10^3/uL RBC 5.01 (4.18-5.48) 10^6 /uL Hgb 15.6 (14.0-18.0) g/dL Hct 45 (42-52) % MCV 90 (80-94) fL MCH 31 (27-31) pg MCHC 35 (31-36) g/dL RDW 14 (10-15) % Plt Count 318 (150-450) 10^3/uL MPV 6.7 L (7.4-10.4) fL Neut % (Auto) 74.8 % Lymph % (Auto) 14.6 % Daniels % (Auto) 8.5 % Eos % (Auto) 1.2 % Baso % (Auto) 0.9 % Absolute Neuts (auto) 12.9 H (1.5-7.7) 10^3/ul Absolute Lymphs (auto) 2.5 (1.0-4.8) 10^3/ul Absolute Monos (auto) 1.5 H (0-0.8) 10^3/ul Absolute Eos (auto) 0.2 (0-0.6) 10^3/ul Absolute Basos (auto) 0.2 (0-0.2) 10^3/ul Absolute Nucleated RBC 0.0 10^3/ul Nucleated RBC % 0.0 INR (Anticoag Therapy) 1.05 (0.82-1.09) Sodium 139 (135-145) mmol/L Potassium 3.7 (3.5-5.0) mmol/L Chloride 106 (101-111) mmol/L Carbon Dioxide 25 (22-32) mmol/L Anion Gap 8 (2-11) mmol/L BUN 19 (6-24) mg/dL Creatinine 1.34 H (0.67-1.17) mg/dL Est GFR ( Amer) 66.7 (>60) Est GFR (Non-Af Amer) 55.1 (>60) BUN/Creatinine Ratio 14.2 (8-20) Glucose 119 H (70-100) mg/dL Calcium 9.3 (8.6-10.3) mg/dL Total Bilirubin 0.50 (0.2-1.0) mg/dL AST 20 (13-39) U/L ALT 38 (7-52) U/L Alkaline Phosphatase 89 (34-104) U/L Troponin I 0.01 (<0.03) ng/mL Total Protein 7.2 (6.4-8.9) g/dL Albumin 3.9 (3.2-5.2) g/dL Globulin 3.3 (2-4) g/dL Albumin/Globulin Ratio 1.2 (1-3) Assess/Plan/Problems-Billing Assessment: This is a 54 year old male with a PMH of GERD and HTN who was admitted on for abdominal pain. - Patient Problems (1) Abdominal pain Current Visit: Yes Status: Acute Code(s): R10.9 - UNSPECIFIED ABDOMINAL PAIN SNOMED Code(s): 17886453 Comment: - Abdomen hard, tender to touch throughout with pain localizing in the midline lower abdomen. No nausea since yesterday. CT scan obtained due to concern for possible perforation. Showed free fluid in retroperitonium though there did not appear to be definitive pancreatitis or colon involvement. Duodenum clear. -EGD performed yesterday which showed no abnormalities and an intact duodenum. During procedure, he developed fever of 100.7 with chills. -Started on empiric zosyn, blood cultures drawn. (2) BPH (benign prostatic hyperplasia) Current Visit: Yes Status: Acute Code(s): N40.0 - BENIGN PROSTATIC HYPERPLASIA WITHOUT LOWER URINRY TRACT SYMP SNOMED Code(s): 694572486 Comment: - Not currently on any medication. (3) DVT prophylaxis Current Visit: Yes Status: Acute Code(s): Z29.9 - ENCOUNTER FOR PROPHYLACTIC MEASURES, UNSPECIFIED SNOMED Code(s): 991510050 Comment: Is low risk, does not require AC (4) Full code status Current Visit: Yes Status: Acute Code(s): Z78.9 - OTHER SPECIFIED HEALTH STATUS SNOMED Code(s): 457536689 (5) HTN (hypertension) Current Visit: Yes Status: Acute Code(s): I10 - ESSENTIAL (PRIMARY) HYPERTENSION SNOMED Code(s): 08392688 Comment: - Continue amlodipine. benzapril on hold currently (6) GERD (gastroesophageal reflux disease) Current Visit: Yes Status: Acute Code(s): K21.9 - GASTRO-ESOPHAGEAL REFLUX DISEASE WITHOUT ESOPHAGITIS SNOMED Code(s): 636314406 Comment: -Ordered pantoprazole IV daily. No current symptoms. -poss barretts on egd -continue ppi (7) Adrenal nodule Current Visit: Yes Status: Acute Code(s): E27.8 - OTHER SPECIFIED DISORDERS OF ADRENAL GLAND SNOMED Code(s): 713194488 Comment: needs further outpt evaluation (8) Pancreatitis Current Visit: Yes Status: Acute Code(s): K85.90 - ACUTE PANCREATITIS WITHOUT NECROSIS OR INFECTION, UNSP SNOMED Code(s): 72964512 Comment: improving advance to clear to full ivf (9) Constipation Current Visit: Yes Status: Acute Code(s): K59.00 - CONSTIPATION, UNSPECIFIED SNOMED Code(s): 49379777 Comment: colace and prn miralax Status and Disposition: Condition: fair Disp: Admit obv to 4N
[2019-06-26] MEDS: Docusate CAP* 100 MG PO SCH (19:53)
[2019-06-26] MEDS: Enoxaparin(*) 40 MG/0.4 ML SYR SUBCUT SCH (19:53)
[2019-06-27] MEDS: NS 0.9% 1000 ML** 1,000 ML IV SCH (03:56)
[2019-06-27 04:56] LABS: Hematocrit 42 % (42-52); Hemoglobin 14.3 g/dL (14.0-18.0); Mean Corpuscular HGB Conc 34 g/dL (31-36); Mean Corpuscular Hemoglobin 31 pg (27-31); Mean Corpuscular Volume 91 fL (80-94); Platelet Count 318 10^3/uL (150-450); Red Blood Count 4.62 10^6 /uL (4.18-5.48); Red Cell Distribution Width 14 % (10-15); White Blood Count 15.6 10^3/uL (3.5-10.8)
[2019-06-27 05:03] LABS: ABS Basophils 0.2 10^3/ul (0-0.2); ABS Eosinophils 0.4 10^3/ul (0-0.6); ABS Lymphocytes 2.1 10^3/ul (1.0-4.8); ABS Monocytes 1.7 10^3/ul (0-0.8); ABS Neutrophils 11.2 10^3/ul (1.5-7.7); Eosinophil % 2.9 %; Lymphocyte % 13.5 %; Nucleated Red Blood Cells % 0.1
[2019-06-27 05:04] LABS: Calcium 8.6 mg/dL (8.6-10.3); Potassium 3.7 mmol/L (3.5-5.0)
[2019-06-27 05:10] LABS: BUN/Creatinine Ratio 10.1 (8-20); EGFR African American 84.7 (>60)
[2019-06-27] MEDS: ZOSYN 3.375 GM Q8H per EXTENDED INFUSION IVPB SCH ×4 (08:09→15:02)
[2019-06-27] MEDS: Pantoprazole IV* 40 MG IV SCH (08:20)
[2019-06-27] MEDS: Docusate CAP* 100 MG PO SCH (08:20)
[2019-06-27] MEDS: amLODIPine TAB* 5 MG PO SCH (08:21)
[2019-06-27 13:38] VITALS: BP 143/80
--- NOTE | 2019-06-27 18:01 | DS ---
DISCHARGE SUMMARY: DATE OF ADMISSION: 06/24/19 DATE OF DISCHARGE: 06/27/19 PRIMARY DIAGNOSES: 1. Pancreatitis. 2. Abdominal infection. 3. Adrenal nodules. 4. Gastroesophageal reflux disease, possible Souza's esophagus. SECONDARY DIAGNOSES: 1. Hypertension. 2. Gastroesophageal reflux disease. 3. Esophageal stricture. 4. Benign prostatic hyperplasia. PAST SURGICAL HISTORY: Endoscopy/varicose vein surgery. HOSPITAL COURSE: A 54-year-old male with past medical history of GERD, esophageal web discovered on EGD in 2011, hypertension, came into the hospital with 3 days of postprandial discomfort and signific ant excruciating pain, sudden onset, radiating from his epigastrium to his testicles. The patient sheldon d atypical symptoms. Reports that he had diffuse pain from his chest to his groin area. Please refe r to the history and physical dictated in detail by EDWIN Cai, for full details. In the ER, the patient had a CTA of the abdomen, chest and pelvis to rule out dissection due to his symptoms, wh ich showed atherosclerotic disease with no aortic dissection, showed coronary artery disease, also sheldon d atypical findings and extending from the inferior margin of the third duodenal segment, there was n onspecific stranding of retroperitoneal tissues anterior to the right psoas muscle to be correlated f or signs of peptic ulcer disease and also recommended followup imaging, also noted to have intermedia te adrenal nodules 2 cm on the left and 1.5 cm on the right. At the time of followup, adrenal mass p rotocol was also recommended for further evaluation. The patient's lipase was also noted to be eleva julianne at 417. The patient's creatinine was worse than usual at 1.34 and the patient had a white count of 17.2. GI Dr. Gibson was consulted and Dr. Jayme Mckeon. The patient was initially kept n.p.o. a nd his pancreatitis was managed with supportive treatment. The patient was slowly advanced to clear. The patient's pancreatitis symptoms have improved and repeat enzymes noted to be improved as well. The patient was seen by GI and evaluating his CT findings and history, an EGD to evaluate for peptic ulcer disease was also done. EGD performed by Dr. Mueller on 06/25/19, which showed mildly irre gular GE junction with some suspicion for Souza's esophagus. The findings in the EGD did not corre late to the patient's abnormal CT findings. GI recommended the patient to be on PPI due to his GERD symptoms and to follow up pathology of the biopsy done for evaluation of Souza's. The patient also spiked mild fever and started having chills and had a white count. The patient was started on empir ic antibiotics with IV Zosyn with improvement in his symptoms and improvement in his abdominal pain. In the ER, the patient also had CT of the abdomen and pelvis on 06/25/19 without IV contrast, which showed small amount of simple fluid in the pelvis with inflammatory change noted in the retroperitone um corresponding to findings noted in the previous exam of unclear etiology. Differentials including enteritis including the retroperitoneal portions of the upper GI tract as well as pancreatitis. No free intraperitoneal gas or extravasation of contrast. No obstruction was noted and the patient was noted to have the adrenal nodularity again. Overall, the patient's clinical picture is a little unusual; however, with respect to his clinical co urse he has significantly improved and needs close followup as an outpatient for further evaluation a nd management. In summary: 1. His pancreatitis has improved and the patient has been n.p.o., then advanced to clears and curren tly has tolerated a soft diet and the patient is stable from this standpoint. The patient advised to keep on soft and to advance his diet slowly for his pancreatitis. 2. GERD with possible Souza's esophagus. The patient to follow up with GI as an outpatient and to follow up on the biopsy of the esophagus. The patient to continue his PPI that he has been taking o meprazole 40 mg p.o. once a day for now for his symptoms. 3. With respect to his adrenal nodules, aldosterone, renin, metanephrines, and cortisol levels have been drawn, results of which are pending at this time to see if the nodules are functioning. The pat ient's blood pressure has been fairly well controlled with medications. The patient needs further fo llowup as an outpatient in a few weeks for repeat CT imaging with adrenal mass protocol to ensure res olution of his above CT findings and to rule out adrenal mass and pathology. 4. 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 The patient to follow up results of this with his PCP. 5. As the patient is improved with empiric antibiotics and the patient does have some enteritis and suggestion of intraabdominal infection with fever and white count, the patient will be discharged on ciprofloxacin and Flagyl empirically for intraabdominal infection for 5 more days. The patient to sheldon ve his BMP and CBC checked in a week to ensure resolution of his leukocytosis and symptoms. Also nee ds interval repeat of his CT imaging in a few weeks. The patient reports significant improvement in his abdominal pain and has not needed any further Dila udid or pain medications, has also tolerated his diet and is being discharged in stable condition. V itals and labs noted to be stable at the time of discharge. PHYSICAL EXAMINATION: Temperature 98.6, pulse 69, respiratory rate 16, oxygen saturation 96% on room air, blood pressure 143/80. HEENT: NC/AT. Heart: S1, S2 present. Regular at the time of exam. Lungs: Clear to auscultation. Abdomen: Soft. Extremities: No edema. Neuro: Alert, oriented x3. MEDICATION LIST: 1. Wellbutrin 300 mg p.o. daily. 2. Amlodipine/benazepril 1 cap p.o. daily. 3. Omeprazole 40 mg p.o. daily. 4. Flagyl 500 mg p.o. t.i.d. 5. Ciprofloxacin 500 mg p.o. b.i.d. Please note the patient's creatinine was also elevated at 1.34 and his [place] inhibitor was initially he ld, but his creatinine has improved to 1.06 at the time of discharge after hydration. LABORATORY DATA: Labs at the time of discharge: Sodium 138, potassium 3.7, chloride 107, CO2 of 25, BUN 6, creatinine 1.09. WBC 15.6, hemoglobin 14.3, hematocrit 42, platelets noted to be over 315. INSTRUCTIONS: Please see above and the patient to follow up with his PCP in a week. CONDITION: Stable. DISPOSITION: Home. TIME SPENT: Total time spent on discharge is equal to 60 minutes. [id number]/[facility] #: [id number]
[2019-06-30 15:33] LABS: Plasma Free Metanephrine <0.20 nmol/L (<0.50); Plasma Free Normetanephrine 0.39 nmol/L (<0.90)
[2019-06-30 15:58] LABS: Anaplasma phagocytophilium <1:64 titer (<1:64); Ehrlichia chaffeensis IgG AB <1:64 titer (<1:64); Lyme Disease Serology Negative (Negative)
== END 2019-06-27 11:15 | disposition home or self-care (01) | DRG 440 ==
LOC: ED 14:35 → MED 18:22 → OBSVTOIN 06-26 08:33
PROVIDERS: ADMIT Hospitalist; ATTEND Internal Medicine
PROC: 0DB48ZX Excision of Esophagogastric Junction, Via Natural or Artificial Opening Endoscopic, Diagnostic (ICD-10-PCS; principal; 2019-06-25)
DX: K85.90 Acute pancreatitis without necrosis or infection, unspecified (principal); K52.9 Noninfective gastroenteritis and colitis, unspecified; N40.0 Benign prostatic hyperplasia without lower urinary tract symptoms; K22.70 Barrett's esophagus without dysplasia; K21.9 Gastro-esophageal reflux disease without esophagitis; I10 Essential (primary) hypertension; K59.00 Constipation, unspecified; R50.9 Fever, unspecified; E27.8 Other specified disorders of adrenal gland; Z87.891 Personal history of nicotine dependence
CPT/HCPCS: 36415; 71275; 74174; 74176; 80048; 80053; 80061; 81003; 81015; 82088; 83690; 83735; 83835; 84484; 85025; 85610; 86618; 86666; 86753; 87040; 88305; 93005; 96374; 96375; 96376; 99156; 99157; 99284; A9270-GY; G0378; J1650; J2250; J2270; J2405; J2543; J3010; Q9967